=== PATIENT | female | born 1990 ===

== ENCOUNTER 2020-10-15 10:36 | Day surgery (SDC) | payer OTHER ==
[~2020-10-15 10:36] MED LIST: VITAMIN D PO
== END 2020-10-15 18:00 | disposition home or self-care (01) ==
LOC: CIR.AMB 10:36
PROVIDERS: ATTEND Obstetrics & Gynecology Obstetrics
DX: N93.8 Other specified abnormal uterine and vaginal bleeding (principal); Z20.822 Contact with and (suspected) exposure to COVID-19